=== PATIENT | female | born 1955 | race Caucasian/White ===

== ENCOUNTER → 2022-10-29 10:56 | Outpatient (CLI) | payer OTHER, SELFPAY ==
--- NOTE | 2022-10-29 10:58 | DI.CT.S_ITS ---
PROCEDURE: CT LE LT W CON INDICATIONS: Other fracture of left lower leg. Left fibula fracture TECHNIQUE: Noncontrast 3-mm axial sections acquired from the distal tibial shaft to the talar dome, with coronal and sagittal reformats.. COMPARISON: [facility] [place], CR, XR ANKLE 3+ VIEWS LEFT, 09/17/2022, 15:39. FINDINGS: Image quality: Excellent. Bones: Patient is status post prior internal fixation of distal fibular shaft. Increased radiolucency surrounding fixation hardware in fibular shaft is seen, concerning for hardware loosening. Partial bony union at distal fibular shaft fracture site surrounding the fixation hardware is noted. Up to 5 mm diastasis with corticated margin is seen at nonunited portion of fibular shaft fracture site. There is also partially united fracture involving medial malleolus. No other fracture or dislocation is seen. Osteoarthritic changes are noted in tibiotalar joint and subtalar joint. Disruption of medial and lateral ankle mortise is seen. Soft tissues: There is moderate tibiotalar joint effusion, no calcified intra-articular loose bodies. No full-thickness ankle tendon rupture is noted. No abnormal soft tissue calcifications. No soft tissue mass or drainable fluid collection. IMPRESSION: 1. Old partially united right medial malleolus fracture. 2. Old partially united distal fibular shaft fracture as described above. Prior fixation of fibular shaft with questionable increased radiolucency surrounding fixation hardware concerning for hardware loosening. 3. Widening of both medial and lateral ankle mortise. No acute fracture or dislocation. Moderate tibiotalar and subtalar joint osteoarthritis. 4. Moderate tibiotalar joint effusion, no calcified intra-articular loose bodies. No full-thickness tendon rupture. No abnormal soft tissue calcifications. Dictated by: Alex Vo M.D. on 10/30/2022 at 14:02 Approved by: Alex Vo M.D. on 10/30/2022 at 14:06
== END ==
PROVIDERS: Referring Provider Orthopaedic Surgery Foot and Ankle Surgery; Visit Provider Orthopaedic Surgery Foot and Ankle Surgery
DX: S82.892P Other fracture of left lower leg, subsequent encounter for closed fracture with malunion (principal); M19.072 Primary osteoarthritis, left ankle and foot; M25.472 Effusion, left ankle
CPT/HCPCS: 73700

== ENCOUNTER 2022-11-20 11:57 | Day surgery (SDC) | payer OTHER, SELFPAY ==
[2022-11-13 16:27] VITALS: BMI 35.2
--- NOTE | 2022-11-20 | DI.RAD.S_ITS ---
PROCEDURE: XR ANKLE LT MIN 3V INDICATIONS: ANKLE ORIF TECHNIQUE: 3 intraoperative views of the ankle were acquired. COMPARISON: None. FINDINGS: Bones: ORIF of the distal fibula and medial malleolus. Soft tissues: No tibiotalar joint effusion. Achilles tendon appears normal. IMPRESSION: Intraoperative imaging above. Dictated by: Jose Busby M.D. on 11/20/2022 at 19:23 Approved by: Jose Busby M.D. on 11/20/2022 at 19:24
[2022-11-20 12:33] VITALS: BP 153/56; PULSE 86; RESP 16; TEMP 36.3; O2SAT 97; BMI 32.7
[2022-11-20] MEDS: LACTATED RINGERS 1,000 ML 42 ML IV ×2 (12:51→17:33)
[2022-11-20] MEDS: ACETAMINOPHEN 325 MG TABLET 975 MG PO (12:53)
--- NOTE | 2022-11-20 14:31 | P.HP_ITS ---
History of Present Illness History of Present Illness Date Patient Seen: 11/20/22 Time Patient Seen: 14:31 Chief complaint: [facility] Narrative: Patient is a 67-year-old female that presents with persistent left ankle pain. She had a trimalleolar ankle fracture on January 26, 2022. She was treated with surgical fixation at an outside hospital with a minimally invasive intramedullary screws the fibula. She was then placed into a cast. Per report her medial fracture was not addressed due to fracture blisters. Alignment was initially acceptable went on to malunion and posttraumatic arthritis. She has a history of fibromyalgia. She does not have diabetes she does not take any blood thinners. She does take chronic pain medication oxycodone 5 mg several times a day. She was counseled on options and would like to attempt joint salvage option for an ankle arthroplasty in the future. We discussed to do this I would stage a revision of her ankle malunion. She would like to proceed with this. 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 Obesity Renal failure Surgical History H/O eye surgery History of colostomy History of hysterectomy History of tonsillectomy Hx of appendectomy Social History household members: spouse Smoking Status: Never smoker alcohol intake: current Meds Home Medications and Allergies Home Medications Medication Instructions Recorded Confirmed Type atorvastatin 20 mg tablet 20 mg PO DAILY 11/13/22 11/20/22 History bupropion HCl 100 mg tablet 100 mg PO BID 11/13/22 11/20/22 History buspirone 15 mg tablet 15 mg PO BID 11/13/22 11/20/22 History celecoxib 200 mg capsule 200 mg PO BID 11/13/22 11/20/22 History duloxetine 60 mg capsule,delayed 60 mg PO DAILY 11/13/22 11/20/22 History release gabapentin 400 mg capsule 400 mg PO TID 11/13/22 11/20/22 History levothyroxine 100 mcg capsule 100 mcg PO DAILY 11/13/22 11/20/22 History losartan-hydrochlorothiazide mg PO DAILY 11/13/22 History mirabegron 25 mg tablet,extended 25 mg PO DAILY 11/13/22 11/20/22 History release 24 hr (Myrbetriq) trazodone 100 mg tablet 100 mg PO BID 11/13/22 11/20/22 History oxycodone-acetaminophen 5 mg-325 1 tab PO 3XD PRN Pain (Scale Score 11/20/22 11/20/22 History mg tablet 4-6) Allergies Allergy/AdvReac Type Severity Reaction Status Date / Time adhesive tape Allergy Severe Rash Verified 11/20/22 12:30 tramadol Allergy Severe Vomiting Verified 11/20/22 12:30 Review of Systems Review of Systems Narrative: Chronic pain, fibromyalgia, back pain ROS: Yes All systems reviewed with the patient and are negative except as otherwise documented Exam Vital Signs (past 8 hours): - 11/20/22 12:33 Temperature 97.3 F L Pulse Rate 86 Respiratory Rate 16 Blood Pressure 153/56 H Pulse Oximetry 97 Oxygen Delivery Method Room Air Oxygen Delivery Method Room Air Narrative Exam Narrative: Alert oriented female in no acute distress. Lungs clear to auscultation bilaterally heart regular rate and rhythm. Antalgic gait on the left. Left lower extremity demonstrates valgus alignment of the ankle. Decreased ankle range of motion 5? dorsiflexion 30? plantar flexion. Tender at distal fibular tip and sub fibular impingement. Mild medial and lateral swelling. Calf soft. Sensation intact. Skin wrinkles present. Palpable dorsalis pedis pulse. Sensation grossly intact. Objective Imaging Ankle x-rays: My impression: Ankle x-rays from September 17, 2022 three views of the left ankle weight-bearing AP mortise and lateral demonstrate trimalleolar ankle fracture with malunion valgus alignment. Long intramedullary screw across fibula. Decreased tibiotalar joint space consistent with posttraumatic arthritis and malunion medial malleolus and posterior malleolus fractures with apparent shortening of the fibula. Medial and lateral soft tissue swelling. Assessment & Plan Assessment and plan (1) Closed fracture of left ankle with malunion: Status: Acute Plan Left ankle malunion with retained hardware. Discussed options for ankle fusion versus hardware removal malunion revision and possible future ankle replacement. Patient would like to proceed with a ankle malunion revision. Discussed with them to see how she does after this and this would not address the arthritis but may make it less symptomatic. If she has persistent ankle arthritis after alignment correction she would be a candidate for a total ankle replacement versus ankle fusion. She understands and agrees with the plan. She is interested in proceeding with the malunion correction and understands she may require future ankle arthroplasty. Time Spent With Patient Time with patient: less than 30 minutes Quality VTE Deep Vein Thrombosis/Pulmonary Embolism Present on Admission: No
[2022-11-20] MEDS: CEFAZOLIN 2 GM/100 ML PREMIX 100 ML IV (15:11)
--- NOTE | 2022-11-20 15:14 | P.OP_ITS ---
Operative Date/Time/Diagnoses Date of procedure: 11/20/22 Time of procedure: 16:00 Pre-op diagnosis: Closed trimalleolar ankle fracture left with malunion Posttraumatic ankle arthritis Painful orthopedic hardware Post-op diagnosis: same Procedure & Clinicians Procedure: 1. Revision, open reduction internal fixation of fracture malunion left tibia medial malleolus CPT code 98022 2. Revision procedure on syndesmosis CPT code 52790 modifier 59 separate site separate incision 3. Repair fibular malunion CPT code 79264, left 4. Fibula osteotomy CPT code 79260, left 5. Removal of implant deep left fibula CPT code 16443 6. Bone graft small local CPT code 25446, left Same procedure as scheduled: Yes Indications: Patient is a 67-year-old female that has left ankle pain and swelling. She had a comminuted displaced trimalleolar ankle fracture on the left side in January of 2022 she had surgical fixation at outside hospital with a intramedullary fibular screw and was placed into a cast. A minimally invasive fixation of her fibula and per report her medial malleolar fracture was not addressed due to fracture blisters. Her syndesmosis was not addressed. Her initial alignment was acceptable we went on to malunion and posttraumatic arthritis. She is had persistent pain and swelling. She has a left ankle fracture malunion which was a trimalleolar fracture with syndesmotic disruption. She has posttraumatic arthritis. She was counseled on options she has painful hardware. She was canceled on hardware removal and options of ankle arthrodesis or eventual ankle arthroplasty. She was cancelled based on her malunion she will need a staged revision of her malunion to restore the malleoli boundaries and allow for a staged total ankle implant. She would like to proceed with a joint salvage procedure which includes hardware removal and revision open reduction internal fixation of her malunion. She understands that she may still have symptomatic posttraumatic arthritis and may eventually require ankle arthroplasty or arthrodesis. The risks and benefits of the procedure have been discussed with the patient and given the opportunity to ask questions. The risks of surgery include but are not limited to infection, malunion, nonunion, persistence of pain, damage to nerves and blood vessels, posttraumatic arthritis, DVT, PE, cardiopulmonary complications and . The patient expressed a thorough understanding of the risks and benefits of surgery and has elected to proceed. Consent was signed. Surgeon: Joan Carrillo Click Yes if Unassisted: Yes Anesthesia Type: General, Peripheral nerve block and Local Operative Notes Findings: Malunited distal fibula fracture with intramedullary screw. Large lateral malpositioned fragment was removed and used for bone graft. Shortened fibula was osteotomized lengthened utilizing a push technique with a screw and lamina fagoting machine operator against the plate. Syndesmotic disruption syndesmosis was open debrided and reduced fixed with 2 cortical screws. The ankle joint was inspected both through lateral and medial arthrotomy there was some cartilage thinning no full-thickness lesions noted. Medially there was a malunion of the medial malleolus in valgus. This was osteotomized and the medial gutter was cleaned out. The medial malleolar fracture was reduced and pinned in place and then fixed with 2 x 3.5 headless screws There was significant improvement in the mortise alignment of the ankle postoperatively. Closure Type: primary Specimen(s): none sent Prosthetic devices, grafts, tissues, transplants, or devices: Arthrex 6 hole lateral locking plate 2.7 locking screws distally. 3.5 locking and nonlocking screws proximally. Syndesmosis was fixed with 2x 3.5 cortical screws 46 and 48 mm Medial malleolus was fixed with 2x 3.5 head this cannulated screws from the Arthrex set Malunited fibula fracture fragment was osteotomized and used for local bone graft for the separate fibular lengthening osteotomy Estimated Blood Loss (mL): 100 Blood products transfused: none Tourniquet time (min): 60 Procedure in detail: Patient seen in the preoperative area the site of surgery was marked informed consent confirmed. The patient was brought back to the operating room by the anesthesia team positioned supine on operative table. A well-padded thigh tourniquet was placed. An ipsilateral thigh bump was placed and a contralateral SCD was placed. The left lower extremity was prepped and draped the standard sterile fashion a formal time-out procedure was performed confirming the patient's side and site of surgery administration of appropriate preoperative antibiotic. All were in agreement Attention was turned to the left leg Esmarch was used for exsanguination the tourniquet raised in the thigh to 250 mmHg. This stayed elevated for approximately 1 hour at which point the tourniquet became venous it was noted at the time the blood pressure was 165mmHg briefly, at this point the tourniquet was released and remained down for the rest of the procedure. Procedure started on the lateral side. A long lateral longitudinal incision over the fibula was drawn on the skin taken down through skin subcutaneous tissue. This gently curved anterior of the distal fibula. Dissection was taken down to the level of the distal fibula. There was a large united but malpositioned distal fibula fragment this was large and prominent and was osteotomized and later used for bone graft. Next The hardware removal was proceeded. The distal end of the screw head was identified using a rongeur. A screw front loader residential driver was used to remove the 3.5 long screw from the [employer] set from the fibula. Once this was completely removed attention turned to the fibula. Due to the location of the previous comminuted split fracture in the quality of the bone decision was made to osteotomize above the previous fracture in order to gain fibular length. This was done in an oblique fashion with a TTS saw. At this point a 6 hole locking lateral plate from the Arthrex set was fixed to the distal fragment with nonlocking and locking screws. This was gently clamped to the proximal fragment and then a 3.5 screw was placed proximal above the plate and a lamina fagoting machine operator was used to push against the screw and plate to act as a fagoting machine operator to help gain length through the fibula. Proximally 3-4 mm was able to be gained and this was then fixed in place with proximal screws. \ Additionally the syndesmosis was opened with anterior dissection from the lateral incision and this was cleaned out with a rongeur and pituitary and open reduced and clamped in place. After the medial malleolar fixation was completed the syndesmosis reduction was again checked and then eventually fixed with 2x 3.5 cortical screws from the Arthrex set Attention was turned medially to the medial malleolar malunion. Separate medial incision was made over the medial malleolus care full dissection was taken down through the skin subcutaneous tissue protecting the sural neurovascular bundle. Periosteum was incised and a anterior arthrotomy was made to expose the tibiotalar joint and isolate the talus. Pituitary rongeur was used to clean out the medial gutter. Posteriorly the dissection was carried to the level of the posterior tibialis tendon and this was isolated and protected throughout the case. There was noted to have some bone formation along the more proximal posterior tibialis tendon sheath and this was removed as was noted on the preoperative CT scan. Attention then turned to the medial malleolar malunion. Using direct and fluoroscopic guidance previous fracture site was found and the osteotome was used to create an osteotomy through the fracture site once this was completed the medial malleolus distal fragment was brought into a more varus procedure from its valgus malunion and fixed in place with a clamp and K-wires for the 3.5 cannulated headless screws. Care was taken to attempt to aim these more vertically out of the path of the potential ankle arthroplasty. This allowed the talus to shift medial and restore the mortise. After final fixation multiplanar fluoroscopy was taken in AP lateral and mortise images and live stress fluoroscopy was completed confirming improved alignment and mortise positioning. No evidence of opening on stress exam or talar tilt. Of note the posterior previous malunion of the fibula was tolerated due to this vertical split nature of the fracture the osteotomy more proximal was selected for lengthening. Wounds were irrigated. Hemostasis was achieved. Wounds were closed with 2-0 Vicryl 4-0 Monocryl and 3-0 nylon suture. 21 cc of local anesthetic was infiltrated. Count was off by 1 needle that was noted to have fallen on the floor at the back table. A postoperative x-ray was taken confirming no unexpected findings. Sterile dressing was placed with Xeroform gauze Webril and a well-padded posterior and U stirrup splint with an Sha wrap. Patient was awoken from anesthesia and taken to recovery room in good condition. The postoperative block was placed by the anesthesia team for postoperative pain control. Complications: none Post-operative Condition: stable Disposition: PACU Plan for aftercare: Nonweightbearing. Elevate above the heart level as much as possible. Nonweightbearing x6 weeks. Aspirin for DVT prophylaxis. Sutures remain in place 2-4 weeks. We will go into a removable boot and start some early dorsiflexion plantar flexion range of motion while remaining nonweightbearing.
--- NOTE | 2022-11-20 15:50 | SUR.OPER ---
Supine on padded OR bed, head on pillow, arms secured on padded arm boards at <90 degrees abduction, legs uncrossed, safety belt at thigh, tape over blanket over lower legs.
[2022-11-20] MEDS: BUPIVACAINE 0.25% (PF) 30 ML, EPINEPHrine 0.15 MG INJ (16:02)
[2022-11-20 18:44] VITALS: BP 145/61; PULSE 113; RESP 11; TEMP 37.3; O2SAT 93
[2022-11-20 18:48] VITALS: BP 150/60; PULSE 101; RESP 11; O2SAT 94
[2022-11-20] MEDS: OXYCODONE IR 5 MG TABLET PO (18:54)
[2022-11-20] MEDS: ONDANSETRON 4 MG/2 ML INJ IV (18:55)
[2022-11-20 19:00] VITALS: BP 142/60; PULSE 91; RESP 11; O2SAT 94
== END 2022-11-20 19:34 | disposition home or self-care (01) ==
PROVIDERS: PCP Family Medicine; Referring Provider Orthopaedic Surgery Foot and Ankle Surgery; Visit Provider Orthopaedic Surgery Foot and Ankle Surgery
PROC: (CPT 20902; principal; 2022-11-20 13:15)
DX: S82.852P Displaced trimalleolar fracture of left lower leg, subsequent encounter for closed fracture with malunion (principal); S93.432D Sprain of tibiofibular ligament of left ankle, subsequent encounter; T84.84XA Pain due to internal orthopedic prosthetic devices, implants and grafts, initial encounter; M19.172 Post-traumatic osteoarthritis, left ankle and foot; G89.18 Other acute postprocedural pain
CPT/HCPCS: 20902; 27726; 27220; 27829; 20680; 64445; 73610; 76000; J0171; J0690; J1170; J2405; J2704; J3010

== ENCOUNTER → 2023-12-24 12:23 | Outpatient (CLI) | payer MEDICARE, SELFPAY ==
--- NOTE | 2023-12-24 12:25 | DI.CT.S_ITS ---
PROCEDURE: CT LE LT W CON INDICATIONS: arthritis of left ankle/maven protocol. TECHNIQUE: Noncontrast 3-mm axial sections acquired from the distal tibial shaft to the talar dome, with coronal and sagittal reformats.. COMPARISON: [facility] [place], CR, XR ANKLE 3 VIEWS WEIGHT BEARING LEFT, 09/21/2023, 16:15. [facility], CT, CT LE LT WO CON, 10/29/2022, 11:12. FINDINGS: Image quality: Excellent. Bones: Prior screw tracks in the distal fibula and in the distal tibia metadiaphysis. Screw fixation of the medial malleolus. No hardware complication. There is widening of the medial clear space, likely secondary to ligamentous injury. Severe degenerative changes of the tibiotalar joint. Remodeling of the distal fibula, unchanged from prior exam. A Steida process is noted. Small plantar calcaneal enthesophyte. There is a fat containing lesion in the proximal tibia metadiaphysis, measuring 2.7 cm with thin sclerotic margins, favoring benign etiology. Ossification about the medial femoral condyle, representing prior injury of the MCL. No acute fracture or dislocation. Lateral tilt of the patella. Soft tissues: No significant knee effusion. Mild subcutaneous edema of the medial and lateral ankle . Mild tendinosis of the distal Achilles tendon. The extensor, flexor, and the peroneal tendons are unremarkable. IMPRESSION: 1. Prior screw tracks in the distal fibula and in the distal tibial metadiaphysis. Screw fixation of the medial malleolus. No hardware complication. 2. Severe degenerative changes of the tibiotalar joint with remodeling of the distal fibula. 3. Mild tendinosis distal Achilles tendon. Dictated by: Christine Prasad M.D. on 12/28/2023 at 11:12 Approved by: Christine Prasad M.D. on 12/28/2023 at 11:22
== END ==
LOC: CT 12:24
PROVIDERS: PCP Family Medicine; Referring Provider Orthopaedic Surgery Foot and Ankle Surgery; Visit Provider Orthopaedic Surgery Foot and Ankle Surgery
DX: M19.072 Primary osteoarthritis, left ankle and foot (principal)
CPT/HCPCS: 73700

== ENCOUNTER 2024-03-22 06:00 | Day surgery (SDC) | payer MEDICARE, SELFPAY ==
[2024-03-21 09:23] VITALS: BMI 33.6
--- NOTE | 2024-03-22 | DI.RAD.S_ITS ---
PROCEDURE: XR ANKLE LT MIN 3V INDICATIONS: left total shira TECHNIQUE: 6 views of the ankle were acquired. COMPARISON: [facility], CR, XR ANKLE LT MIN 3V, 11/20/2022, 17:29. FINDINGS: Bones: Interval plate and screw fixation hardware removal with single residual medial malleolar internal fixation screw retained. Interval placement of a tibiotalar ankle joint arthroplasty. No fractures or dislocations. Ankle mortise is normally aligned. No suspicious bony lesions. Soft tissues: Limited assessment with intraoperative fluoroscopic images. IMPRESSION: Interval removal of plate screw fixation with placement of a tibiotalar left ankle arthroplasty. Dictated by: Los Bautista M.D. on 03/22/2024 at 16:15 Approved by: Los Bautista M.D. on 03/22/2024 at 16:22
[2024-03-22] MEDS: ACETAMINOPHEN 325 MG TABLET 975 MG PO (06:24)
[2024-03-22 06:27] VITALS: BP 185/75; PULSE 75; RESP 11; TEMP 36.1; O2SAT 99; BMI 33.6
[2024-03-22] MEDS: LACTATED RINGERS 1,000 ML 42 ML IV ×2 (07:03→10:48)
--- NOTE | 2024-03-22 07:24 | PM.PREOP ---
Pre-operative Note Interval Note History & Physical reviewed/Exam performed by Physician: Yes Changes to H&P: No
[2024-03-22] MEDS: CEFAZOLIN 2 GM/100 ML PREMIX 100 ML IV (08:05)
--- NOTE | 2024-03-22 08:32 | SUR.OPER ---
Supine on padded OR bed, head on pillow, arms secured on padded arm boards at <90 degrees abduction, legs uncrossed, safety belt abdomen, tape over blanket over lower non-op leg.
[2024-03-22] MEDS: BUPIVACAINE 0.25% (PF) 30 ML, EPINEPHrine 0.15 MG INJ (11:18)
[2024-03-22 11:34] VITALS: BP 124/61; PULSE 97; RESP 12; TEMP 36.8; O2SAT 94
[2024-03-22 11:37] VITALS: BP 108/52; PULSE 99; RESP 16; TEMP 36.8; O2SAT 94
[2024-03-22 11:43] VITALS: BP 109/60; PULSE 97; RESP 14; TEMP 36.7; O2SAT 94
--- NOTE | 2024-03-22 11:47 | P.OP_ITS ---
Operative Date/Time/Diagnoses Date of procedure: 03/22/24 Time of procedure: 11:47 Pre-op diagnosis: Posttraumatic arthritis left ankle Post-op diagnosis: same Procedure & Clinicians Procedure: 1. Ankle replacement left CPT code 73919 2. Tendo-Achilles lengthening left CPT code 53646 separate site modifier 59 3. Hardware removal left ankle medial malleolus CPT code 74875 modifier 59 for separate site separate incision Same procedure as scheduled: Yes Indications: Patient was a 69-year-old female with posttraumatic left ankle arthritis. She has been indicated for total ankle replacement. She has been indicated for partial hardware removal to allow for the ankle arthroplasty. She has a tight contracted ankle from her posttraumatic deformity and Achilles tightness and is indicated for possible ligamentous balancing and lengthening procedures as indicated. The risks and benefits of the procedure have been discussed with the patient and given the opportunity to ask questions. The risks of surgery include but are not limited to infection, malunion, nonunion, persistence of pain, damage to nerves and blood vessels, posttraumatic arthritis, DVT, PE, coardiopulmonary complications and . The patient expressed a thorough understanding of the risks and benefits of surgery and has elected to proceed. Consent was signed in the office During the operation, the services of a physician surgical product sales consultant were medically indicated and necessary to provide the exposure of the operative site for the surgical procedure and to maintain the limb in a proper position to carry out the operation safely and efficiently. Without a qualified drug safety assistant being present this would extended the operative procedure and made the procedure technically more difficult to perform. Surgeon: Joan Carrillo Technology Program Manager: Sue Peres Anesthesia Type: General, Peripheral nerve block and Local Operative Notes Findings: End-stage posttraumatic ankle arthritis. Retained medial malleolar screws. Posterior medial malleolus screw required removal in order to fit the implant. This was removed through separate incision. After the implant was placed there was some deficiency of dorsiflexion without significant change with knee flexion and extension therefore decision was made for tendo-Achilles lengthening. One tendo-Achilles lengthening there was palpable audible stretch and return of 10? of dorsiflexion. Closure Type: primary Specimen(s): none sent Prosthetic devices, grafts, tissues, transplants, or devices: Centerview 28 apex total ankle replacement tibia 1 long with stem arc tibia. Centerview 28 apex 3D talus flat cut talar dome size 1 narrow Poly implant size 1 thickness 9 Estimated Blood Loss (mL): 50 Blood products transfused: none Tourniquet time (min): 84 Procedure in detail: Patient was seen in the preoperative area the site of surgery was marked informed consent confirmed this with the left leg. The anesthesiologist placed a regional block for postoperative pain control. The patient was taken to the operating room positioned supine on operative table. Ipsilateral thigh bump was placed. Well-padded thigh tourniquet was placed. The left lower extremity prepped and draped in standard sterile fashion formal time-out procedure was performed confirming the patient's side and site of surgery administration of appropriate preoperative antibiotic. All were in agreement. Attention turned to the left ankle he Esmarch was used for exsanguination tourniquet raised in the thigh to 250 mm Hg. After 84 minutes this became a venous tourniquet was let down for the remainder of the case. Attention 1st started with the required medial malleolar hardware removal Medial malleolar hardware removal. A separate incision through the previous incision along the medial malleolus was taken down through the skin subcutaneous tissue. Using fluoroscopic guidance the posterior medial malleolar screw was isolated and a K-wire placed within the headless screw. Then the cannulated screwdriver for 3.5 headless screw from the [employer] set was used to remove the screw. Once this was completed the more anterior screw was retained to protect the medial malleolus. Attention was then turned to the total ankle replacement. Separate standard anterior incision for total ankle replacement was made approximately 12 cm long proximally 1 cm lateral to the tibial crest and extended from above the joint to the level of the talar navicular joint. This was taken down through skin subcutaneous tissue. The SPN nerve was isolated and protected and retracted laterally. The tendon sheath for the EHL was then opened EHL and neurovascular bundle were retracted laterally. The tibialis anterior was kept its tendon sheath and retracted medially. Suppressive dissection was taken down to the tibial bone. The periosteum was reflected off of it and then the joint was opened and dissected subperiosteally as well. Once appropriate visualization was obtained the guide from the apex 3D tibia was then placed onto the bone and pinned in place. This was aligned per the standard technique but felt that the joint line was low so this was elevated under fluoroscopic guidance and positioned slightly more medially according with the plan for the stemmed component. Once everything was centered our guide was secured. The drill holes for the arc tibia were then drilled with a separate sets cleaning the drill between them. This was set up for a 1 tibia. And drilled like a 1 long. Then attention was turned to a coupled cut for the talus. A flat dome talus cut was secured checked under fluoroscopy and then cut. Next the talus and tibia bone blocks were removed. Once this was removed adequately the spacer blocks were applied and the trials. The tibia was prepped with the central stemmed PEG using the 90 degree angle drill. Care was taken to make sure the implants laid flat. The final tibial tray was impacted place. And the peg holes talar implant were drilled as well. Once this was completed the final 1 narrow tibial implant was selected and impacted impacted in place. Trial polys were used up to a size 9 which felt to have excellent stability and maintenance of range of motion. The final size 9 poly was opened and then placed. Ankle was stable on varus and valgus stress without any significant tilting. Range of motion was 40? of plantar flexion 10? of dorsiflexion. Appropriate impaction of the implants was achieved. Wound was irrigated and closed in layered fashion with 0 Vicryl in the capsule 2-0 PDS in the extensor retinaculum and 4-0 Monocryl subcutaneous and 3-0 nylon denied any sutures in the skin. Additional 18 cc of 0.25% Marcaine with epinephrine were used for local anesthetic. A sterile dressing was placed with Xeroform gauze Webril and a bulky Reed splint in neutral position with a stirrup and posterior slab. The patient was woken from anesthesia taken to the recovery room in good condition there were no immediate complications from this procedure. Counts were correct. Complications: none Post-operative Condition: stable Disposition: PACU Plan for aftercare: Nonweightbearing x2 weeks follow up in clinic for wound evaluation. Once wound is healed appropriately we will initiate progressive weight-bearing in the boot. With full weight-bearing achieved between 4-6 weeks and then weaning out boot thereafter. Patient will use aspirin 325 mg daily for DVT prophylaxis x6 weeks postop.
[2024-03-22 11:48] VITALS: BP 119/61; PULSE 95; RESP 12; TEMP 36.7; O2SAT 95
== END 2024-03-22 13:11 | disposition home or self-care (01) ==
LOC: OR 06:01 → AC 06:03
PROVIDERS: PCP Family Medicine; Referring Provider Orthopaedic Surgery Foot and Ankle Surgery; Visit Provider Orthopaedic Surgery Foot and Ankle Surgery
PROC: (CPT 27702; principal; 2024-03-22 07:45)
PROC: (CPT 27685; 2024-03-22 07:45)
DX: M19.172 Post-traumatic osteoarthritis, left ankle and foot (principal); G89.18 Other acute postprocedural pain
CPT/HCPCS: 27702; 27685; 20680; 64450; 73610; 76000; C1776; J0171; J0690; J1100; J2250; J2405; J2704; J3010